=== PATIENT | female | born 1985 | race Caucasian/White ===

== ENCOUNTER 2024-03-28 15:21 | Outpatient (CLI) | payer BC | END 2024-03-28 15:22 | disposition home or self-care (01) | LOC: CSHMAMMO 15:21 | PROVIDERS: ATTEND Family Medicine | DX: Z12.31 Encounter for screening mammogram for malignant neoplasm of breast (principal); Z80.3 Family history of malignant neoplasm of breast | CPT/HCPCS: 77067 ==

== ENCOUNTER 2024-04-11 13:27 | Outpatient (CLI) | payer BC | END 2024-04-11 13:28 | disposition home or self-care (01) | LOC: CSHMAMMO 13:27 | PROVIDERS: ATTEND Family Medicine | DX: N64.89 Other specified disorders of breast (principal); R59.0 Localized enlarged lymph nodes | CPT/HCPCS: G0279 ==